=== PATIENT | female | born 1985 | race Hispanic/Latino ===

== ENCOUNTER → 2016-03-13 | Outpatient (CLI) | payer OTHER ==
--- OUTSIDE RECORDS SUMMARY | 2016-03-13 09:51 | XMS REPORT ---
Author SARAH BETH Mcrae [facility] eClinicalWorks Address Unknown Phone Unavailable Care Team Providers Care Computer Assembler Name Role Phone SARAH BETH MARK CP Unavailable Allergies No Known Allergies Problems Problem Type Condition Code Onset Dates Condition Status Assessment First , first trimester Z34.01 Active Medications No Known Medications Results No Known Results Summary Purpose eClinicalWorks Submission
--- NOTE | 2016-03-13 14:31 | Diagnostic Imaging Report ---
OB ultrasound. INDICATION: survey. FINDINGS: The heart rate is 136 beats per minutes. The cervix is long and closed. Adequate amniotic fluid is seen. There is no placenta previa. The placenta is posterior. The growth parameters are all around 18 weeks and 0 day, matching the gestational age by first trimester ultrasound. survey demonstrates unremarkable appearance of the spine, the posterior fossa, no ventriculomegaly, and the stomach and the urinary bladder appear unremarkable. Two umbilical arteries are noted. The cord insertion is not well seen. The four-chamber view is not well seen. IMPRESSION: Appropriate interval growth. Follow-up to evaluate four-chamber view and cord insertion recommended. Dictated by: Dictated on workstation # [id number]
== END ==
LOC: RAD 09:48
PROVIDERS: ATTEND Family Medicine
DX: Z34.02 Encounter for supervision of normal first pregnancy, second trimester (principal); Z3A.18 18 weeks gestation of pregnancy
CPT/HCPCS: 76805

== ENCOUNTER → 2016-05-01 | Outpatient (CLI) | payer OTHER ==
--- NOTE | 2016-05-01 17:30 | Diagnostic Imaging Report ---
OB ultrasound. INDICATION: Incomplete survey. Reevaluate cord insertion and four-chamber view of the heart. FINDINGS: The heart size is 139 beats per minute. The placenta is posterior. There is no placenta previa. The head position is cephalic. The four-chamber view and the cord insertion appear normal. IMPRESSION: Completed survey. Dictated by: Dictated on workstation # [id number]
== END ==
LOC: RAD 13:48
PROVIDERS: ATTEND Family Medicine
DX: Z34.92 Encounter for supervision of normal pregnancy, unspecified, second trimester (principal)
CPT/HCPCS: 76816

== ENCOUNTER 2016-08-17 09:18 | Outpatient (CLI) | payer OTHER ==
[~2016-08-17] VITALS: Ht 160 cm; Wt 84.4 kg
[2016-08-17 09:32] VITALS: BP 111/66
[2016-08-17] MEDS ORDERED: PREN-53 PO (10:24)
--- NOTE | 2016-08-19 14:01 | Physician Query-Final Dx ---
LINA UMAÑA 08/19/16 1401: Clinic Account Progress/Dx Physician Query: Please give diagnosis Date of Service Aug 17, 2016 at 09:18 HERMINIO FOURNIER MD 08/23/16 1143: Clinic Account Progress/Dx DIAGNOSIS: Diagnosis 40 weeks gestation Leaking fluid, negative testing for rupture of membranes LINA UMAÑA Aug 19, 2016 14:01 HERMINIO FOURNIER MD Aug 23, 2016 11:43
[2016-08-20] MEDS ORDERED: IBUP-1773 PO (16:26)
== END 2016-08-17 10:35 | disposition home or self-care (01) ==
LOC: WSo 09:18 → LDRP 09:19 → WSo 10:35
PROVIDERS: ATTEND Family Medicine
DX: Z34.83 Encounter for supervision of other normal pregnancy, third trimester (principal); Z3A.40 40 weeks gestation of pregnancy
CPT/HCPCS: 99214

== ENCOUNTER 2016-08-19 04:54 | Inpatient (IN) | payer OTHER ==
[2016-08-19] VITALS (51 sets, daily range): BP systolic 95–131; BP diastolic 53–92
[~2016-08-19] VITALS: Ht 160 cm; Wt 84.4 kg
[~2016-08-19 04:54] MED LIST: PREN-53 PO
[2016-08-19] MEDS ORDERED: D5 LR IV SOLUTION 1,000 ML IV ONE (05:24)
[2016-08-19] MEDS ORDERED: AMPICILLIN INJECTION 2,000 MG in NS (IVPB) 50 ML IV SCH (05:27)
[2016-08-19] MEDS: D5 LR IV SOLUTION 1,000 ML IV SCH ×2 (05:53→15:46)
[2016-08-19] MEDS ORDERED: AMPICILLIN 2000 MG INJECTION (IM/IV) ONE (05:53)
[2016-08-19] MEDS ORDERED: NS (IVPB) 50 ML ONE (05:54)
[2016-08-19] MEDS ORDERED: CATHETER FLUSH 10 ML SYR IV SCH ×2 (06:00→22:00)
[2016-08-19 06:09] LABS: BASOPHILS % (AUTO) 0 % (0-10); EOSINOPHILS # (AUTO) 0.1 10^3/uL (0.0-0.3); EOSINOPHILS % (AUTO) 1 % (0-10); LYMPHOCYTES # (AUTO) 1.8 X 10^3 (1.0-4.0); LYMPHOCYTES % (AUTO) 20 % (12-44); MEAN CORPUSCULAR HEMOGLOBIN 31 PG (25-34); MEAN CORPUSCULAR HGB CONC 35 G/DL (32-36); MEAN CORPUSCULAR VOLUME 87 FL (80-99); MEAN PLATELET VOLUME 9.1 FL (7.4-10.4); MONOCYTES # (AUTO) 0.7 X 10^3 (0.0-1.0); MONOCYTES % (AUTO) 9 % (0-12); NEUTROPHILS # (AUTO) 6.1 X 10^3 (1.8-7.8); NEUTROPHILS % (AUTO) 70 % (42-75); PLATELET COUNT 160 10^3/uL (130-400); RED BLOOD COUNT 4.54 10^6/uL (4.35-5.85); RED CELL DISTRIBUTION WIDTH 13.2 % (10.0-14.5); WHITE BLOOD COUNT 8.8 10^3/uL (4.3-11.0)
[2016-08-19] MEDS ORDERED: OXYTOCIN/NORMAL SALINE 500 ML IV SCH ×2 (07:35→17:10)
--- NOTE | 2016-08-19 07:35 | History & Physical-OB ---
OB - Chief Complaint & HPI Date/Time Date of Admission: Date of Admission: Aug 19, 2016 at 05:24 Time Seen by Provider: 07:15 Chief Complaint/History OB-Reason for Admission/Chief: Onset of Labor Hx : 1 Hx Para: 0 Expected Date of Delivery: Aug 14, 2016 Gestational Age in Weeks: 40 Gestational Age in Days: 5 Admission Nurse Assessment Rev: Yes Allergies and Home Medications Allergies Coded Allergies: No Known Drug Allergies (Unverified , 08/17/16) Home Medications Laz426/Iron Fumarate/FA/Dss 1 Each Tablet, 1 EACH PO DAILY, (Reported) OB - History Hx of Present Care: Yes Ultrasounds: Normal mid trimester US Obstetrical Complications: None Medical Complications: None Delivery History Adverse Rxn to Tranfusion: No Patient Past Medical History No chronic medical problems Social History/Family History Recent Infectious Disease Expo: No Alcohol Use: Denies Use Recreational Drug Use: No Immunizations Hepatitis A: Yes Hepatitis B: Yes OB - Admission Exam Physical Exam Date Seen by Provider: Aug 19, 2016 Time Seen by Provider: 07:15 Vitals: Vital Signs 08/19/16 06:00 Temp 97.2 Pulse 66 Resp 20 B/P (MAP) 130/71 O2 Delivery Room Air HEENT: Moist Membranes Heart: Rhythm Normal Lungs: Clear Abdomen: Gravid Cervical Dilatation: 3cm Effacement: 50% Station: -2 Membranes: Intact Accelerations: Accelerations Present Short Term Variability: Present It Systems Analyst Variability: Average (6-25) Intensity: Mild Labs Laboratory Tests Test 08/19/16 05:50 Range/Units White Blood Count 8.8 4.3-11.0 10^3/uL Red Blood Count 4.54 4.35-5.85 10^6/uL Hemoglobin 13.9 11.5-16.0 G/DL Hematocrit 40 35-52 % Mean Corpuscular Volume 87 80-99 FL Mean Corpuscular Hemoglobin 31 25-34 PG Mean Corpuscular Hemoglobin Concent 35 32-36 G/DL Red Cell Distribution Width 13.2 10.0-14.5 % Platelet Count 160 130-400 10^3/uL Mean Platelet Volume 9.1 7.4-10.4 FL Neutrophils (%) (Auto) 70 42-75 % Lymphocytes (%) (Auto) 20 12-44 % Monocytes (%) (Auto) 9 0-12 % Eosinophils (%) (Auto) 1 0-10 % Basophils (%) (Auto) 0 0-10 % Neutrophils # (Auto) 6.1 1.8-7.8 X 10^3 Lymphocytes # (Auto) 1.8 1.0-4.0 X 10^3 Monocytes # (Auto) 0.7 0.0-1.0 X 10^3 Eosinophils # (Auto) 0.1 0.0-0.3 10^3/uL Basophils # (Auto) 0.0 0.0-0.1 10^3/uL OB - Assessment/Plan/Diagnosis Assessment Assessment: active labor (at 40w5d) Plan [facility] MD Aug 19, 2016 07:34
[2016-08-19] MEDS ORDERED: SUFENTA 0.6MCG/ML BUPIVA 0.125 100 ML ONE (08:34)
[2016-08-19] MEDS ORDERED: BUPIVACAINE 0.25% 30 ML (SENSORCAINE) VIAL ONE (08:43)
[2016-08-19] MEDS ORDERED: LIDOCAINE PF 2% 5 ML (XYLOCAINE) VIAL ONE (08:43)
[2016-08-19] MEDS ORDERED: fentaNYL INJECTION 100 MCG/2 ML AMP ONE (08:43)
[2016-08-19] MEDS ORDERED: LACTATED RINGERS 1,000 ML IV ONE ×2 (08:45→09:21)
[2016-08-19] MEDS ORDERED: diphenhydrAMINE 50 MG/ML INJ (BENADRYL) IV PRN (09:30)
[2016-08-19] MEDS ORDERED: ONDANSETRON 4 MG/2 ML (SDV) Z0FRAN IV PRN (09:30)
[2016-08-19] MEDS ORDERED: NALOXONE 0.4 MG/ML 1 ML (NARCAN) VIAL IV PRN (09:30)
[2016-08-19] MEDS ORDERED: CATHETER FLUSH 10 ML SYR IV PRN (09:30)
[2016-08-19] MEDS ORDERED: EPIDURAL (SUFENTA 0.6MCG/ML BUPIVA 0.125%) 100 ML BAG EPI SCH (09:30)
[2016-08-19] MEDS: AMPICILLIN INJECTION 1,000 MG in NS (IVPB) 50 ML IV SCH ×2 (11:48→15:46)
[2016-08-19] MEDS ORDERED: MEPIVACAINE (CARBOCAINE) 2% 50 ML VIAL ONE (16:23)
--- NOTE | 2016-08-19 17:10 | OB Labor & Delivery Record ---
L&D History Date of Service Date of Service: Aug 19, 2016 History Expected Date of Delivery: Aug 14, 2016 Gestational Age in Weeks: 40 Hx : 1 Hx Para: 1 Complications Events: Routine care Operative Indications (Cesarea: N/A-Vaginal Delivery (with suction assist) Intrapartal Events: Ineffective Pushing (at delivery of head) Other Complications GBS positive treated with 3 doses of Amp L&D Stage1 Stage One Onset of Labor - Date: Aug 19, 2016 Onset of Labor - Time: 07:10 Monitors and Tracing Monitor Mode: Internal Heart Rate: 128 Monitor Accelerations: Uniform Monitor Decelerations: Variable Station: +1 Shuttle Threader Variability: Average (6-10) Short Term Variability: Present Presentation: Vertex Vital Signs VS - Last 72 Hours, by Label 08/19/16 08/19/16 08/19/16 08/19/16 06:00 08:00 09:00 09:05 Temp 97.2 97.4 97.4 Pulse 66 76 69 Resp 20 20 20 B/P (MAP) 130/71 107/73 124/92 Pulse Ox 100 100 O2 Delivery Room Air Room Air Room Air 08/19/16 08/19/16 08/19/16 08/19/16 09:08 09:13 09:20 09:25 Pulse 69 85 72 68 Resp 20 20 18 18 B/P (MAP) 125/82 111/74 125/77 117/69 Pulse Ox 100 99 99 98 O2 Delivery Room Air Room Air Room Air Room Air 08/19/16 08/19/16 08/19/16 08/19/16 09:30 09:35 09:40 09:45 Pulse 72 75 71 71 Resp 18 18 18 18 B/P (MAP) 106/72 110/69 107/67 111/69 Pulse Ox 99 99 99 99 O2 Delivery Room Air Room Air Room Air Room Air 08/19/16 08/19/16 08/19/16 08/19/16 09:50 09:55 10:00 10:05 Pulse 76 70 74 68 Resp 18 16 16 16 B/P (MAP) 111/67 106/63 96/60 131/70 Pulse Ox 100 100 100 100 O2 Delivery Room Air Room Air Room Air Room Air 08/19/16 08/19/16 08/19/16 08/19/16 10:10 10:15 10:30 10:45 Pulse 63 76 77 73 Resp 16 18 18 18 B/P (MAP) 105/62 95/55 104/59 100/59 Pulse Ox 100 98 98 98 O2 Delivery Room Air Room Air Room Air Room Air 08/19/16 08/19/16 08/19/16 08/19/16 11:00 11:15 11:30 11:45 Pulse 64 56 62 61 Resp 18 20 20 20 B/P (MAP) 109/66 108/70 107/59 105/61 Pulse Ox 100 99 100 100 O2 Delivery Room Air Room Air Room Air Room Air 08/19/16 08/19/16 08/19/16 08/19/16 12:05 12:20 12:35 12:50 Temp 97.0 Pulse 71 79 71 76 Resp 18 20 20 18 B/P (MAP) 99/56 108/67 113/78 116/66 O2 Delivery Room Air Room Air Room Air Room Air 08/19/16 08/19/16 08/19/16 08/19/16 13:05 13:20 13:35 13:50 Pulse 70 81 72 64 Resp 18 18 18 18 B/P (MAP) 112/67 99/63 120/71 109/62 O2 Delivery Room Air Room Air Room Air Room Air 08/19/16 08/19/16 08/19/16 08/19/16 14:05 14:20 14:35 14:50 Pulse 75 93 64 67 Resp 18 18 20 20 B/P (MAP) 102/58 118/57 112/76 105/64 O2 Delivery Room Air Room Air Room Air Room Air 08/19/16 08/19/16 08/19/16 08/19/16 15:05 15:20 15:48 16:05 Temp 98.7 Pulse 78 84 71 88 Resp 18 18 18 18 B/P (MAP) 109/72 113/74 113/74 116/69 O2 Delivery Room Air Room Air Room Air Room Air Signs of Distress by FHT Signs of Distress no Rupture of Membranes Spontaneous Ruture of Membrane: No Amniotic Membrane Rupture Time: 0723 Amniotic Membrane Fluid Desc.: Clear Induction/Anesthesia Epidural Cath Placement - Time: 0908 L&D Stage2 Stage Two Stage II Date: Aug 19, 2016 Stage II Time: 16:49 Monitors and Tracing Monitor Mode: Internal Heart Rate: 128 Monitor Accelerations: Uniform Monitor Decelerations: Variable Shuttle Threader Variability: Average (6-10) Short Term Variability: Present Position: Left Occiput Transverse Presentation: Vertex Signs of Distress by FHT Signs of Distress no Cord Descript/Complications Cord Vessel Description: 3 Vessels Delivery Type Infant Delivery Method: Low Vacuum Extraction Anterior Shoulder: Left Episiotomy/Perineal Laceration Laceraction(s)/Extensions: Yes Episiotomy Description: Midline Sutures Used: Vicryl Condition of Infant Delivery 1 minute Comment: 8 5 minute Comment: 9 Condition of Condition of Infant: Living Exam: No Observed Abnormalities Resuscitation Resuscitation: N/A - Spontaneous Resp L&D Stage3 Stage Three Stage III Date: Aug 19, 2016 Stage III Time: 16:52 Pictocin Pitocin Administration mu/min: 14 Pitocin ml/hr: 14 Placenta Delivery Placenta Delivery: Spontaneous Delivery Summary Summary 250cc Condition of Delivery Examined: Cervix Examined Post Hemorrhage: No Intervention Required none BRIAN LAMAS MD Aug 19, 2016 17:10
[2016-08-19] MEDS ORDERED: TETANUS,DIPTH,PERTUSS P/F (BOOSTRIX) 0.5 ML VIAL IM ONE (17:15)
[2016-08-19] MEDS ORDERED: WITCH HAZEL(TUCKS) 40 EA JAR TOP PRN (17:15)
[2016-08-19] MEDS ORDERED: MEASLES,MUMPS,RUBELLA 1 EA INJ SQ ONE (17:15)
[2016-08-19] MEDS ORDERED: BENZOCAINE/MENTHOL (DERMOPLAST) 56 ML CAN TP PRN (17:15)
[2016-08-19] MEDS: IBUPROFEN 600 MG (MOTRIN) TAB PO SCH (17:39)
[2016-08-20] VITALS: BP 105/65
[2016-08-20] MEDS: IBUPROFEN 600 MG (MOTRIN) TAB PO SCH ×4 (00:16→18:44)
[2016-08-20 04:33] VITALS: BP 95/62
[2016-08-20 06:18] LABS: BASOPHILS % (AUTO) 0 % (0-10); EOSINOPHILS # (AUTO) 0.2 10^3/uL (0.0-0.3); EOSINOPHILS % (AUTO) 2 % (0-10); LYMPHOCYTES % (AUTO) 17 % (12-44); MEAN CORPUSCULAR HEMOGLOBIN 31 PG (25-34); MEAN CORPUSCULAR HGB CONC 35 G/DL (32-36); MEAN CORPUSCULAR VOLUME 89 FL (80-99); MEAN PLATELET VOLUME 8.7 FL (7.4-10.4); MONOCYTES % (AUTO) 9 % (0-12); NEUTROPHILS # (AUTO) 8.4 X 10^3 (1.8-7.8); NEUTROPHILS % (AUTO) 72 % (42-75); PLATELET COUNT 147 10^3/uL (130-400); RED BLOOD COUNT 3.73 10^6/uL (4.35-5.85); RED CELL DISTRIBUTION WIDTH 13.1 % (10.0-14.5); WHITE BLOOD COUNT 11.6 10^3/uL (4.3-11.0)
[2016-08-20] MEDS ORDERED: PRENATAL VITAMIN 1 EA TAB PO SCH (07:00)
--- NOTE | 2016-08-20 07:30 | Progress Note (SOAP) ---
Subjective Date Seen by Provider: Aug 20, 2016 Time Seen by Provider: 07:15 Subjective/Events-last exam A little perineal soreness but otherwise no complaints. Objective Exam Vital Signs Date Time Temp Pulse Resp B/P (MAP) Pulse Ox O2 Delivery O2 Flow Rate FiO2 08/20/16 04:33 98.7 70 18 95/62 100 Room Air 08/20/16 00:00 97.6 76 18 105/65 98 Room Air 08/19/16 19:35 99.0 81 18 101/58 Room Air 08/19/16 18:50 86 18 103/56 Room Air 08/19/16 18:35 83 18 100/58 Room Air 08/19/16 18:20 100.5 93 18 113/53 Room Air 08/19/16 18:05 83 20 108/57 Room Air 08/19/16 17:50 102 20 112/59 Room Air 08/19/16 17:35 93 20 121/62 Room Air 08/19/16 17:20 100.7 88 20 116/68 Room Air 08/19/16 17:05 100.7 100 20 121/68 Room Air 08/19/16 16:50 121 20 129/59 Room Air 08/19/16 16:35 80 22 105/78 Room Air 08/19/16 16:20 90 20 115/76 Room Air 08/19/16 16:05 98.7 88 18 116/69 Room Air 08/19/16 15:48 71 18 113/74 Room Air 08/19/16 15:20 84 18 113/74 Room Air 08/19/16 15:05 78 18 109/72 Room Air 08/19/16 14:50 67 20 105/64 Room Air 08/19/16 14:35 64 20 112/76 Room Air 08/19/16 14:20 93 18 118/57 Room Air 08/19/16 14:05 75 18 102/58 Room Air 08/19/16 13:50 64 18 109/62 Room Air 08/19/16 13:35 72 18 120/71 Room Air 08/19/16 13:20 81 18 99/63 Room Air 08/19/16 13:05 70 18 112/67 Room Air 08/19/16 12:50 76 18 116/66 Room Air 08/19/16 12:35 71 20 113/78 Room Air 08/19/16 12:20 79 20 108/67 Room Air 08/19/16 12:05 97.0 71 18 99/56 Room Air 08/19/16 11:45 61 20 105/61 100 Room Air 08/19/16 11:30 62 20 107/59 100 Room Air 08/19/16 11:15 56 20 108/70 99 Room Air 08/19/16 11:00 64 18 109/66 100 Room Air 08/19/16 10:45 73 18 100/59 98 Room Air 08/19/16 10:30 77 18 104/59 98 Room Air 08/19/16 10:15 76 18 95/55 98 Room Air 08/19/16 10:10 63 16 105/62 100 Room Air 08/19/16 10:05 68 16 131/70 100 Room Air 08/19/16 10:00 74 16 96/60 100 Room Air 08/19/16 09:55 70 16 106/63 100 Room Air 08/19/16 09:50 76 18 111/67 100 Room Air 08/19/16 09:45 71 18 111/69 99 Room Air 08/19/16 09:40 71 18 107/67 99 Room Air 08/19/16 09:35 75 18 110/69 99 Room Air 08/19/16 09:30 72 18 106/72 99 Room Air 08/19/16 09:25 68 18 117/69 98 Room Air 08/19/16 09:20 72 18 125/77 99 Room Air 08/19/16 09:13 85 20 111/74 99 Room Air 08/19/16 09:08 69 20 125/82 100 Room Air 08/19/16 09:05 69 20 124/92 100 Room Air 08/19/16 09:00 97.4 76 20 107/73 100 Room Air 08/19/16 08:00 97.4 Capillary Refill : General Appearance: No Apparent Distress Respiratory: Lungs Clear Cardiovascular: Regular Rate, Rhythm Results Lab Laboratory Tests 08/20/16 06:13: White Blood Count 11.6H, Red Blood Count 3.73L, Hemoglobin 11.5, Hematocrit 33L , Mean Corpuscular Volume 89, Mean Corpuscular Hemoglobin 31, Mean Corpuscular Hemoglobin Concent 35, Red Cell Distribution Width 13.1, Platelet Count 147, Mean Platelet Volume 8.7, Neutrophils (%) (Auto) 72, Lymphocytes (%) (Auto) 17, Monocytes (%) (Auto) 9, Eosinophils (%) (Auto) 2, Basophils (%) (Auto) 0, Neutrophils # (Auto) 8.4H, Lymphocytes # (Auto) 2.0, Monocytes # (Auto) 1.0, Eosinophils # (Auto) 0.2, Basophils # (Auto) 0.0 Assessment/Plan Assessment/Plan Assess & Plan/Chief Complaint 1. S/P day 1 -continue routine PP care orders Clinical Quality Measures DVT/VTE Risk/Contraindication: Risk Factor Score Per Nursin RFS Level Per Nursing on Admit: 1=Low/No VTE PPX BRIAN LAMAS MD Aug 20, 2016 07:30
[2016-08-20 08:53] VITALS: BP 99/66
[2016-08-20] MEDS: HYDROcodone/APAP 5 MG/325 MG (LORTAB) TAB PO PRN ×3 (08:56→20:08)
[2016-08-20] MEDS ORDERED: [UNRECOGNIZED DRUG - OTHER] PO SCH (09:00)
--- NOTE | 2016-08-20 13:43 | Anesthesia-Regional Post-Op ---
Regional Patient Condition Mental Status: Alert, Oriented x3 Circulation: Same as Pre-Op Headache: Absent Sensation: Full Recovery Motor Block: Absent Post Op Complications Complications None Follow Up Care/Instructions Patient Instructions None needed. Anesthesia/Patient Condition Patient is doing well, no complaints, stable vital signs, no apparent adverse anesthesia problems. No complications reported per nursing. D/C home per [facility] Criteria: No FIOR SALAS CRNA Aug 20, 2016 13:43
[2016-08-20 13:49] VITALS: BP 106/53
[2016-08-20] MEDS ORDERED: IBUP-1773 PO (16:26)
--- NOTE | 2016-08-20 16:27 | Discharge Inst-Women's Service ---
Discharge Inst-Women's Serv Depart Medication/Instructions New, Converted or Re-Newed RX: Call to Patients Pharmacy Consults/Follow Up Additional Follow Up: Yes (with Dr Lamas in 6 weeks at [facility]) Activity Activity: Activity as Tolerated Driving Instructions: No Driving for 1 Week Nothing Inside Vagina: No [place] (for 6 weeks) Diet Discharge Diet: Regular Diet Return to The Hospital For: as below Symptoms to Report to : Bleeding Excessive, Pain Increased, Fever Over 101 Degrees F, Vaginal Discharge Foul For Any Problems or Questions: Contact Your Physician, Go to Emergency Room BRIAN LAMAS MD Aug 20, 2016 16:27
--- NOTE | 2016-08-20 16:31 | Discharge Summary ---
Diagnosis/Chief Complaint Date of Admission Aug 19, 2016 at 05:24 Date of Discharge August 20, 2016 Admission Diagnosis Admission Diagnosis 1 Intrauterine at 40 weeks gestation Discharge Diagnosis 1 Intrauterine at 40 weeks gestation Chief Complaint/HPI Chief Complaint/HPI 30-year-old female presents to women's services in the morning of August 19, 2016 in labor. She was noted to be 40 weeks 5 days gestation. Her membranes were intact at that time. Discharge Summary-OBS Procedures 1 Epidural per anesthesia 2. Suction-assisted vertex vaginal 3. Repair of midline episiotomy Discharge Physical Examination Allergies: Coded Allergies: No Known Drug Allergies (Unverified , 08/17/16) Vitals & I&Os Intake and Output 08/20/16 00:00 Intake Total 100 ml Balance 100 ml Vital Sign - Last 12Hours Date Time Temp Pulse Resp B/P (MAP) Pulse Ox O2 Delivery O2 Flow Rate FiO2 08/20/16 13:49 97.4 69 18 106/53 98 Room Air General Appearance: No Acute Distress Respiratory: Clear to Auscultation Cardiovascular: Regular Rate Abdominal: Soft (with uterus firm) Extremities: No Edema Hospital Course following admission patient underwent labor course and eventually went on to deliver term viable female with Apgars of 8 at 1 minute and 9 at 5 minutes. Labs Laboratory Tests 08/20/16 06:13: White Blood Count 11.6H, Red Blood Count 3.73L, Hemoglobin 11.5, Hematocrit 33L , Mean Corpuscular Volume 89, Mean Corpuscular Hemoglobin 31, Mean Corpuscular Hemoglobin Concent 35, Red Cell Distribution Width 13.1, Platelet Count 147, Mean Platelet Volume 8.7, Neutrophils (%) (Auto) 72, Lymphocytes (%) (Auto) 17, Monocytes (%) (Auto) 9, Eosinophils (%) (Auto) 2, Basophils (%) (Auto) 0, Neutrophils # (Auto) 8.4H, Lymphocytes # (Auto) 2.0, Monocytes # (Auto) 1.0, Eosinophils # (Auto) 0.2, Basophils # (Auto) 0.0 Discharge Instructions to patient/family Please see electonic discharge instructions given to patient. Discharge Medications Reviewed and agree with Discharge Medication list on patient's Discharge Instruction sheet Clinical Quality Measures DVT/VTE Risk/Contraindication: Risk Factor Score Per Nursin RFS Level Per Nursing on Admit: 1=Low/No VTE PPX BRIAN LAMAS MD Aug 20, 2016 16:31
--- OUTSIDE RECORDS SUMMARY | 2016-08-20 17:25 | XMS REPORT ---
Author PJ Aldana [facility] eClinicalWorks Address Unknown Phone Unavailable Care Team Providers Care Production Machine Tender Name Role Phone PJ SÁNCHEZ CP Unavailable Allergies, Adverse Reactions, Alerts Substance Reaction Event Type N.K.D.A. Info Not Available Non Drug Allergy Problems Problem Type Condition Code Onset Dates Condition Status Assessment First , first trimester Z34.01 Active Medications No Known Medications Procedures Procedure Coding System Code Date CHORIONIC GONADOTROPIN TEST CPT-4 51995 Dec 12, 2015 BLOOD TYPING, RH (D) CPT-4 05384 Dec 12, 2015 URINE TEST CPT-4 88288 Dec 12, 2015 VENIPUNCT, ROUTINE* CPT-4 94294 Dec 12, 2015 BLOOD TYPING, ABO CPT-4 65609 Dec 12, 2015 Office Visit, Est Pt., Level 3 CPT-4 11600 Dec 12, 2015 Vital Signs Date/Time: Dec 12, 2015 Blood Pressure Systolic 116 mmHg Cardiac Monitoring Heart Rate 60 bpm Weight 160.4 lbs Blood Pressure Diastolic 72 mmHg Results Name Result Date Reference Range Unit Abnormality Flag BLOOD TYPE/RH FACTOR ----ABO Grouping O 20151212 ----Rh Factor Positive 20151212 TEST, URINE (IN HOUSE) ----RESULTS Positive 20151212 ----Lot # [id number] ----Control + 20151212 ----Exp date 20151212 ROUTINE VENIPUNCTURE Summary Purpose eClinicalWorks Submission
--- OUTSIDE RECORDS SUMMARY | 2016-08-20 17:25 | XMS REPORT ---
Author ESTELLA Lopez [facility] eClinicalWorks Address Unknown Phone Unavailable Care Team Providers Care Automobile Accessories Salesperson Name Role Phone ESTELLA KNOWLES CP Unavailable Allergies, Adverse Reactions, Alerts Substance Reaction Event Type N.K.D.A. Info Not Available Non Drug Allergy Problems Problem Type Condition Code Onset Dates Condition Status Assessment Encounter for IUD removal Z30.432 Active Medications Medication Code System Code Instructions Start Date End Date Status Dosage Mirena [facility] [id number] 20 MCG/24HR Intrauterine not defined Procedures Procedure Coding System Code Date URINE TEST CPT-4 13024 August 30, 2015 Office Visit, New Pt., Level 3 CPT-4 75191 August 30, 2015 Vital Signs Date/Time: August 30, 2015 Blood Pressure Systolic 104 mmHg Cardiac Monitoring Heart Rate 76 bpm Weight 161.8 lbs Blood Pressure Diastolic 74 mmHg Results No Known Results Summary Purpose eClinicalWorks Submission
--- OUTSIDE RECORDS SUMMARY | 2016-08-20 17:25 | XMS REPORT ---
Author SARAH BETH Mcrae [facility] eClinicalWorks Address Unknown Phone Unavailable Care Team Providers Care Idea Worker Name Role Phone SARAH BETH MARK CP Unavailable Allergies No Known Allergies Problems Problem Type Condition Code Onset Dates Condition Status Assessment First , first trimester Z34.01 Active Medications No Known Medications Results No Known Results Summary Purpose eClinicalWorks Submission
--- OUTSIDE RECORDS SUMMARY | 2016-08-20 17:25 | XMS REPORT ---
Author SARAH BETH Mcrae [facility] eClinicalWorks Address Unknown Phone Unavailable Care Team Providers Care Custodian Athletic Equipment Name Role Phone SARAH BETH MARK Unavailable Allergies No Known Allergies Problems Problem Type Condition Code Onset Dates Condition Status Assessment First , first trimester Z34.01 Active Medications No Known Medications Procedures Procedure Coding System Code Date VENIPUNCT, ROUTINE* CPT-4 77877 Dec 15, 2015 CHORIONIC GONADOTROPIN TEST CPT-4 25277 Dec 15, 2015 Results Name Result Date Reference Range Unit Abnormality Flag ROUTINE VENIPUNCTURE Summary Purpose eClinicalWorks Submission
--- OUTSIDE RECORDS SUMMARY | 2016-08-20 17:25 | XMS REPORT ---
Author Author BRIAN LAMAS [facility] eClinicalWorks Address Unknown Phone Unavailable Care Team Providers Care Purchasing Associate Name Role Phone BRIAN LAMAS CP Unavailable Allergies No Known Allergies Problems No Known Problems Medications No Known Medications Results No Known Results Summary Purpose eClinicalWorks Submission
--- OUTSIDE RECORDS SUMMARY | 2016-08-20 17:25 | XMS REPORT ---
Author Author BRIAN LAMAS Organization [facility] Address [address] [place] [address] Care Team Providers Care Whey Department Operator Name Role Phone BRIAN LAMAS Unavailable PROBLEMS Type Condition ICD9-CM Code [id number] Code Onset Dates Condition Status SNOMED Code Assessment First , first trimester Z34.01 Dec, Active [id number] Assessment Normal , first Z34.00 Dec, Active [id number] ALLERGIES Substance Reaction Event Type Date Status N.K.D.A. Unknown Non Drug Allergy Dec, Unknown SOCIAL HISTORY No smoking Hx information available PLAN OF CARE Activity Details Pending Test PAP TEST, HPV IF ASCUS Pending Test SYPHILIS (STATE) Pending Test HIV (STATE) Pending Test HEP B SURFACE ANTIGEN (STATE) 4 Weeks,Reason: VITAL SIGNS Height 5'6" in 2016-01-03 Weight 165.0 lbs 2016-01-03 Heart Rate 78 bpm 2016-01-03 Respiratory Rate 18 2016-01-03 BMI 26.64 kg/m2 2016-01-03 Blood pressure systolic 120 mmHg 2016-01-03 Blood pressure diastolic 76 mmHg 2016-01-03 MEDICATIONS Medication Instructions Dosage Frequency Start Date End Date Duration Status Vitamin 27-0.8 MG Active RESULTS Name Result Date Reference Range TSH () 2016-01-03 TSH 1.110 0.450-4.500 CBC 2016-01-03 WBC 6.3 3.4-10.8 RBC 4.54 3.77-5.28 Hemoglobin 13.1 11.1-15.9 Hematocrit 38.3 34.0-46.6 MCV 84 79-97 MCH 28.9 26.6-33.0 MCHC 34.2 31.5-35.7 RDW 13.5 12.3-15.4 Platelets 270 150-379 Neutrophils 62 Lymphs 28 Monocytes 7 Eos 2 Basos 1 Neutrophils (Absolute) 4.0 1.4-7.0 Lymphs (Absolute) 1.7 0.7-3.1 Monocytes(Absolute) 0.4 0.1-0.9 Eos (Absolute) 0.1 0.0-0.4 Baso (Absolute) 0.0 0.0-0.2 Immature Granulocytes 0 Immature Grans (Abs) 0.0 0.0-0.1 ANTIBODY SCREEN 2016-01-03 Antibody Screen Negative Negative BLOOD TYPE/RH FACTOR 2016-01-03 ABO Grouping O Rh Factor Positive RUBELLA ANTIBODIES, IgG 2016-01-03 Rubella Antibodies, IgG 31.50 Immune >0.99 CULTURE, GENITAL 2016-01-03 Genital Culture, Routine Final report Result 1 CULTURE, URINE 2016-01-03 Urine Culture, Routine Final report Result 1 No growth GC/CHLAM PROBE (STATE) 2016-01-03 CHLAMYDIA GC TRICHOMONAS (IN HOUSE) 2016-01-03 TRICHOMONAS Negative Control + Lot # [id number] Exp date 12/2016 URINE DRUG SCREEN (IN HOUSE) 2016-01-03 Lot # [id number] Exp date 06/2017 Control + COCAINE negative AMPH negative MTD negative THC negative OPIATE negative BENZO negative PCP negative BAR negative OXY negative MAMP negative TCA negative BUP negative MDMA negative UA LONG DIP (IN HOUSE) 2016-01-03 Lot # [id number] Exp date 12/2016 Clarity clear Color yellow Odor no GLU negative BELKYS negative KET negative SG 1.025 BLO trace-intact pH 6.5 Protein negative URO 0.2 NIT negative ELMA negative Lot # Exp PDF Report 2016-01-03 PDF Report1 LCLS BACTERIAL VAGINOSIS (IN HOUSE) 2016-01-03 RESULTS Control + Lot # [id number] Exp date 09/2016 Ultrasound : OB, Early <14 WEEKS 2016-01-10 PAP TEST, HPV IF ASCUS 2016-01-03 DIAGNOSIS: Specimen adequacy: Clinician provided ICD10: Performed by: . . Pathologist provided ICD10: Note: . SYPHILIS (STATE) 2016-01-03 HIV (STATE) 2016-01-03 HEP B SURFACE ANTIGEN (STATE) 2016-01-03 HEP B ANTIBODY HEP B ANTIBODY (RML) HEP B ANTIBODY (STATE) PROCEDURES Procedure Date Ordered Related Diagnosis Body Site BLOOD TYPING, RH (D) Jan 03, 2016 URINE CULTURE/COLONY COUNT Jan 03, 2016 BLOOD TYPING, ABO Jan 03, 2016 ASSAY THYROID STIM HORMONE Jan 03, 2016 RBC ANTIBODY SCREEN Jan 03, 2016 RUBELLA ANTIBODY Jan 03, 2016 COMPLETE CBC W/AUTO DIFF WBC Jan 03, 2016 CULTURE, BACTERIA, OTHER Jan 03, 2016 HARMON VAG, DNA, DIR PROBE Jan 03, 2016 URINALYSIS, AUTO, W/O SCOPE Jan 03, 2016 TRICHOMONAS ASSAY W/OPTIC Jan 03, 2016 SPECIMEN HANDLING Jan 03, 2016 DRUG SCREEN NON TLC DEVICES Jan 03, 2016 Office Visit, Est Pt., Level 4 Jan 03, 2016 VENIPUNCT, ROUTINE* Jan 03, 2016 IMMUNIZATIONS No Known Immunizations
--- OUTSIDE RECORDS SUMMARY | 2016-08-20 17:25 | XMS REPORT ---
Author SARAH BETH Mcrae [facility] eClinicalWorks Address Unknown Phone Unavailable Care Team Providers Care Well Tester Name Role Phone SARAH BETH MARK CP Unavailable Allergies, Adverse Reactions, Alerts Substance Reaction Event Type N.K.D.A. Info Not Available Non Drug Allergy Problems No Known Problems Medications Medication Code System Code Instructions Start Date End Date Status Dosage Vitamin [facility] [place] [id number] 27-0.8 MG Orally not defined Results No Known Results Summary Purpose eClinicalWorks Submission
[2016-08-20 20:00] VITALS: BP 106/62
== END 2016-08-20 20:55 | disposition home or self-care (01) | DRG 775 ==
LOC: LDRP 04:54 → WSo 04:54 → LDRP 05:24 → WSo 05:24 → LDRP 20:45
PROVIDERS: ADMIT Family Medicine; ATTEND Family Medicine
PROC: 10D07Z6 Extraction of Products of Conception, Vacuum, Via Natural or Artificial Opening (ICD-10-PCS; principal; 2016-08-19)
PROC: 0W8NXZZ Division of Female Perineum, External Approach (ICD-10-PCS; 2016-08-19)
DX: O75.81 Maternal exhaustion complicating labor and delivery (principal); O99.824 Streptococcus B carrier state complicating childbirth; Z37.0 Single live birth; Z3A.40 40 weeks gestation of pregnancy
CPT/HCPCS: 36415; 85025; 86850; 86900; 86901; 99212

== ENCOUNTER → 2017-07-24 | Outpatient (CLI) | payer OTHER ==
[~2017-07-24] MED LIST changes: +IBUP-1773 PO
--- NOTE | 2017-07-24 17:13 | Diagnostic Imaging Report ---
REASON FOR EXAM: Pelvic pain. COMPARISON: None. TECHNIQUE: Transpelvic sonogram was performed. FINDINGS: The uterus appears anteverted, with an intrauterine device in expected position. The uterus is normal in size. Endometrial thickness is 7 mm which is within normal limits. The right ovary measures 2.0 x 3.5 x 2.1 cm and demonstrates vascular flow. The left ovary measures 2.7 x 2.8 x 1.7 cm and also demonstrates vascular flow. No free fluid is seen. IMPRESSION: 1. No focal uterine masses. The intrauterine device is in expected position. 2. No adnexal masses. Normal appearing ovaries. Dictated by: Dictated on workstation # [id number]
== END ==
LOC: RAD 16:00
PROVIDERS: ATTEND Nurse Practitioner Family
DX: R10.2 Pelvic and perineal pain (principal); Z97.5 Presence of (intrauterine) contraceptive device
CPT/HCPCS: 76856

== ENCOUNTER 2021-04-11 00:21 | Outpatient (CLI) | payer BC ==
[~2021-04-11] VITALS: Ht 162.6 cm; Wt 91.6 kg
[2021-04-11 00:37] VITALS: BP 115/64
[2021-04-11 00:39] VITALS: BP 115/64
[2021-04-11 00:40] VITALS: BP 115/64
[2021-04-11 00:42] LABS: BILIRUBIN,URINE NEGATIVE (NEGATIVE); CLARITY,URINE CLEAR; COLOR,URINE YELLOW; GLUCOSE, URINE (UA) NEGATIVE (NEGATIVE); KETONES,URINE 1+ (NEGATIVE); LEUKOCYTE ESTERASE ,URINE 2+ (NEGATIVE); NITRITE,URINE NEGATIVE (NEGATIVE); PH,URINE 6.5 (5-9); PROTEIN,URINE NEGATIVE (NEGATIVE)
[2021-04-11 00:56] LABS: BACTERIA,URINE TRACE /HPF; SQUAMOUS EPITHELIAL CELL,UR 0-2 /HPF; YEAST,URINE FEW /HPF
[2021-04-11] MEDS ORDERED: fluCOnazole (DIFLUCAN) 100 MG TAB ONE (01:41)
[2021-04-11] MEDS ORDERED: fluCOnazole (DIFLUCAN) 100 MG TAB PO SCH (09:00)
--- NOTE | 2021-04-12 08:15 | Physician Query-Final Dx ---
Clinic Account Progress/Dx Physician Query: Please give diagnosis Please include # weeks gestation Date of Service Apr 11, 2021 at 00:21 ,FebApr 12, 2021 08:15
== END 2021-04-11 01:55 | disposition home or self-care (01) ==
LOC: WSo 00:21 → LDRP 00:22 → WSo 01:55
PROVIDERS: ATTEND Family Medicine
DX: O62.9 Abnormality of forces of labor, unspecified (principal); Z3A.37 37 weeks gestation of pregnancy
CPT/HCPCS: 81000; 87077; 87088

== ENCOUNTER 2021-04-13 02:23 | Inpatient (IN) | payer BC ==
[2021-04-13] VITALS (20 sets, daily range): BP systolic 94–128; BP diastolic 51–90
[2021-04-13 03:00] LABS: BASOPHILS % (AUTO) 0 % (0-10); EOSINOPHILS # (AUTO) 0.1 10^3/uL (0.0-0.3); EOSINOPHILS % (AUTO) 1 % (0-10); HEMATOCRIT 30 % (35-52); HEMOGLOBIN 9.3 g/dL (11.5-16.0); LYMPHOCYTES # (AUTO) 1.8 10^3/uL (1.0-4.0); LYMPHOCYTES % (AUTO) 18 % (12-44); MEAN CORPUSCULAR HEMOGLOBIN 24 pg (25-34); MEAN CORPUSCULAR HGB CONC 31 g/dL (32-36); MEAN CORPUSCULAR VOLUME 76 fL (80-99); MEAN PLATELET VOLUME 9.3 fL (9.0-12.2); MONOCYTES # (AUTO) 0.7 10^3/uL (0.0-1.0); MONOCYTES % (AUTO) 7 % (0-12); NEUTROPHILS # (AUTO) 7.5 10^3/uL (1.8-7.8); NEUTROPHILS % (AUTO) 74 % (42-75); PLATELET COUNT 164 10^3/uL (130-400); WHITE BLOOD COUNT 10.2 10^3/uL (4.3-11.0)
[2021-04-13] MEDS ORDERED: D5 LR IV SOLUTION 1,000 ML IV SCH (03:00)
[2021-04-13] MEDS ORDERED: LACTATED RINGERS 1,000 ML IV SCH (03:00)
[2021-04-13] MEDS ORDERED: CITRIC ACID/SOB CIT (BICITRA) 30 ML UDC ONE (03:12)
[2021-04-13] MEDS ORDERED: METOCLOPRAMIDE INJ 10 MG/2 ML (REGLAN) ONE ×2 (03:13→04:00)
[2021-04-13] MEDS ORDERED: FAMOTIDINE 20MG/2ML IV (PEPCID) ONE (03:13)
[2021-04-13] MEDS ORDERED: ceFAZolin 2 GM IV Premixed 50 ML ONE (03:13)
[2021-04-13] MEDS ORDERED: CATHETER FLUSH 10 ML SYR IV PRN (03:15)
[2021-04-13] MEDS ORDERED: LACTATED RINGERS 1,000 ML IV PRN ×2 (03:15)
[2021-04-13] MEDS ORDERED: METOCLOPRAMIDE INJ 10 MG/2 ML (REGLAN) IV ONE (03:15)
[2021-04-13] MEDS ORDERED: CITRIC ACID/SOB CIT (BICITRA) 30 ML UDC PO ONE (03:15)
--- NOTE | 2021-04-13 03:25 | History & Physical-OB ---
OB - Chief Complaint & HPI Date/Time Date of Admission: Date of Admission: Apr 13, 2021 at 02:36 Date seen by a Provider: Apr 13, 2021 Time Seen by a Provider: 03:10 Chief Complaint/History OB-Reason for Admission/Chief: Rupture of Membranes (with vaginal bleeding) Hx : 2 Hx Para: 1 Expected Date of Delivery: May 06, 2021 Gestational Age in Weeks: 36 Gestational Age in Days: 5 Indication for : other (placental abuption suspect) Admission Nurse Assessment Rev: Yes History of Labs GBS obtained 04/11/2021 and pending Allergies and Home Medications Allergies Coded Allergies: No Known Drug Allergies (Unverified , 08/17/16) Patient Home Medication List Home Medication List Reviewed: Yes No Active Prescriptions or Reported Meds OB - History Hx of Present Care: Yes Ultrasounds: Normal mid trimester US (with posterior placenta) Obstetrical Complications: None Medical Complications: None Obstetrical History Hx : 2 Hx Para: 1 Delivery History Adverse Rxn to Tranfusion: No Patient Past Medical History No chronic medical problems Social History/Family History Recreational Drug Use: No Immunizations Influenza Vaccine Up-to-Date: Yes; Up-to-Date Hepatitis A: Yes Hepatitis B: Yes OB - Admission Exam Physical Exam Vitals: Vital Signs 04/13/21 03:08 Temp 36.5 Pulse 68 Resp 18 B/P (MAP) 128/90 (103) Pulse Ox 100 O2 Delivery Room Air HEENT: Moist Membranes Heart: Rhythm Normal Lungs: Clear Cervical Dilatation: 1cm Effacement: 50% Station: Ballotable Membranes: Ruptured (with blood on glove) Heart Rate: 130's Accelerations: No Accelerations Decelerations: No Decelerations Short Term Variability: Present Nursing Home Variability: Minimal (3-5) Contractions on Admission: < 5 Minutes Apart Intensity: Moderate Labs Laboratory Tests Test 04/13/21 02:36 Range/Units White Blood Count 10.2 4.3-11.0 10^3/uL Red Blood Count 3.96 3.80-5.11 10^6/uL Hemoglobin 9.3 L 11.5-16.0 g/dL Hematocrit 30 L 35-52 % Mean Corpuscular Volume 76 L 80-99 fL Mean Corpuscular Hemoglobin 24 L 25-34 pg Mean Corpuscular Hemoglobin Concent 31 L 32-36 g/dL Red Cell Distribution Width 14.0 10.0-14.5 % Platelet Count 164 130-400 10^3/uL Mean Platelet Volume 9.3 9.0-12.2 fL Immature Granulocyte % (Auto) 1 % Neutrophils (%) (Auto) 74 42-75 % Lymphocytes (%) (Auto) 18 12-44 % Monocytes (%) (Auto) 7 0-12 % Eosinophils (%) (Auto) 1 0-10 % Basophils (%) (Auto) 0 0-10 % Neutrophils # (Auto) 7.5 1.8-7.8 10^3/uL Lymphocytes # (Auto) 1.8 1.0-4.0 10^3/uL Monocytes # (Auto) 0.7 0.0-1.0 10^3/uL Eosinophils # (Auto) 0.1 0.0-0.3 10^3/uL Basophils # (Auto) 0.0 0.0-0.1 10^3/uL Immature Granulocyte # (Auto) 0.1 0.0-0.1 10^3/uL OB - Assessment/Plan/Diagnosis Assessment Assessment: rupture of membranes, vaginal bleeding Admission Dx 1. IUP at 36w5d -uterine contractions q 2 min apart currently 2. Vaginal bleed with ruptured membranes, suspect placental abruption -minimal variablilty and only dilated to 1 cm and 50% effaced -will plan on stat CS. -surgery crew and Dr Chatman notified. Admission Status: Inpatient Order (span 2 midnights) Reason for Inpatient Admission: Stat CS due to vaginal bleed (placental abruption likely) with 36w5d gestation Plan Plan: Section (stat) BRIAN LAMAS MD Apr 13, 2021 03:25
[2021-04-13] MEDS ORDERED: ceFAZolin 2 GM IV Premixed 50 ML IV ONE (03:30)
[2021-04-13] MEDS ORDERED: SUCCINYLCHOLINE INJ 20 MG/1 ML 10 ML VIAL ONE (03:35)
[2021-04-13] MEDS ORDERED: proPOfol 200 MG/20 ML (DIPRIVAN) VIAL IV ONE (03:35)
[2021-04-13] MEDS ORDERED: fentaNYL INJ 100 MCG/2 ML AMP ONE (03:37)
[2021-04-13] MEDS ORDERED: METHYLERGONOVINE 0.2 MG/ML (METHERGINE) AMP ONE (03:50)
[2021-04-13] MEDS ORDERED: ONDANSETRON 4 MG/2 ML (SDV) Z0FRAN ONE (04:00)
[2021-04-13] MEDS ORDERED: OXYTOCIN PRE-MIX DRIP 500 ML IV ONE (04:00)
[2021-04-13] MEDS ORDERED: morphine INJ 10 MG/ML 1ML (SYR OR VIAL) ONE (04:03)
--- NOTE | 2021-04-13 04:28 | Discharge Inst-Women's Service ---
Discharge Inst-Women's Serv Depart Medication/Instructions New, Converted or Re-Newed RX: Transmitted to Pharmacy Final Diagnosis POD 2 PLTCS Problems Reviewed?: Yes Consults/Follow Up Additional Follow Up: Yes Orders/Referrals Dr. Chatman or Mónica in 7-[address] Chino in 6 weeks Activity Activity: Activity as Tolerated Driving Instructions: No Driving for 1 Week NO SMOKING: NO SMOKING Nothing Inside Vagina: No Douching, No [place], No Tampons Diet Discharge Diet: No Restrictions Symptoms to Report to : Bleeding Excessive, Pain Increased, Fever Over 101 Degrees F, Vaginal Bleeding Increase, Questions/Concerns For Any Problems or Questions: Contact Your Physician Skin/Wound Care Infection Signs and Symptoms: Increased Redness, Foul Odor of Wound, Increased Drainage, Skin Itchy or Has a Rash, Increased Swelling, Temperature Above 101 F Operative Area Clean and Dry: Keep Incision Clean/Dry Stitches/Yumiko/Dermabond: Dermabond, Care of Stitches Bathing Instructions: ADELE Ramon DO Apr 13, 2021 04:28
[2021-04-13] MEDS ORDERED: OXYTOCIN PRE-MIX DRIP 500 ML IV SCH (04:30)
[2021-04-13] MEDS ORDERED: ONDANSETRON 4 MG/2 ML (SDV) Z0FRAN IVP PRN ×2 (04:30→04:45)
[2021-04-13] MEDS ORDERED: ACHD5005 PO (04:30)
[2021-04-13] MEDS ORDERED: HYDROmorphone 2 MG/ML VIAL (DILAUDID) IV PRN (04:30)
[2021-04-13] MEDS ORDERED: MEASLES,MUMPS,RUBELLA 1 EA INJ SC SCH (04:30)
[2021-04-13] MEDS ORDERED: TETANUS,DIPTH,PERTUSS P/F (BOOSTRIX) 0.5 ML VIAL IM SCH (04:30)
[2021-04-13] MEDS ORDERED: FERR325T18 PO (04:30)
[2021-04-13] MEDS ORDERED: NALOXONE 0.4 MG/ML 1 ML (NARCAN) VIAL IV PRN (04:30)
[2021-04-13] MEDS ORDERED: DOCU100C37 PO (04:30)
[2021-04-13] MEDS ORDERED: IBUP-844 PO (04:30)
[2021-04-13] MEDS ORDERED: HYDROmorphone 2 MG/ML VIAL (DILAUDID) IV ONE (04:45)
[2021-04-13] MEDS ORDERED: SEVOFLURANE (ULTANE) 15 ML INHAL SOLN ONE (04:45)
[2021-04-13] MEDS ORDERED: HYDROmorphone 2 MG/ML VIAL (DILAUDID) ONE (04:52)
[2021-04-13] MEDS ORDERED: CATHETER FLUSH 10 ML SYR IV SCH (06:00)
--- NOTE | 2021-04-13 06:05 | Diagnostic Imaging Report ---
INDICATION: Postoperative evaluation, foreign body, status post . COMPARISON: None available TECHNIQUE: 2 radiographs of the pelvis and lower abdomen dated 04/13/2021 FINDINGS: The superior aspect of the abdomen is not included within the [id number]. No acute fracture or dislocation. No destructive osseous process. The sacroiliac joints and pubic symphysis are intact. No suspicious radiopaque foreign body within the [id number]. Nonobstructive bowel gas pattern. IMPRESSION: No suspicious radiopaque foreign body within the [id number]. Dictated by: Dictated on workstation # [id number]
[2021-04-13] MEDS: KETOROLAC 30 MG/ML VIAL IV SCH ×3 (06:06→18:27)
[2021-04-13] MEDS: DOCUSATE SODIUM 100 MG (COLACE) CAP PO SCH (08:29)
[2021-04-13] MEDS: HYDROcodone/APAP 5 MG/325 MG (LORTAB) TAB PO PRN ×2 (08:30→13:08)
--- NOTE | 2021-04-13 09:36 | OPERATIVE REPORT ---
DATE OF SERVICE: 04/13/2021 PREOPERATIVE DIAGNOSES: 1. A 35-year-old G2, P1 at 36 weeks and 5 days gestation. 2. Placental abruption. POSTOPERATIVE DIAGNOSES: 1. A 35-year-old G2, P1 at 36 weeks and 5 days gestation. 2. Placental abruption with distress. PROCEDURE: Primary low transverse section. SURGEON: Walter Chatman DO CLINICAL RN LIAISON: Troy Chino MD, who was necessary for manipulation and retraction throughout the procedure. ANESTHESIA: General. ESTIMATED BLOOD LOSS: 800 mL. URINE OUTPUT: 150 mL clear at the end of the procedure. FLUIDS: 2000 mL lactated Ringer's solution. FINDINGS: A live male infant weighing 7 pounds 5 ounces, Apgars of 1, 4 and 5. Grossly normal appearing bilateral fallopian tubes and ovaries. Ecchymosis noted throughout the entire uterus, placental detachment consistent with abruption. SPECIMEN SENT: Placenta and cord gases. INDICATIONS FOR PROCEDURE: This 35-year-old female is a patient who presented to the Emergency Department this morning approximately 2:00 a.m. with sudden onset of vaginal bleeding that was running down her legs and significant amount of abdominal pain and contractions. Upon evaluation on the monitor by Dr. Chino, she was found to be marko every 1 to 2 minutes with significant discomfort. She was 1 cm dilated and there was a significant amount of bleeding noted vaginally. Due to suspicion for abruption, I was notified at the time of my presentation. heart rate was still stable with a baseline of approximately 155 to 160, but minimal variability, no accelerations were noted. Due to concerns for wellbeing as well as the significant amount of vaginal bleeding the patient we decided to proceed with emergency . Risks were reviewed with the patient briefly preoperatively. OR crew was contacted and the procedure was started as soon as possible under general anesthesia. DESCRIPTION OF PROCEDURE: Once in the operating room, general anesthesia was found to be adequate. She was placed in supine position with leftward tilt, prepped and draped in normal sterile fashion. Once I have given the okay by anesthesia, I make a Pfannenstiel skin incision with a knife and carried down to underlying fascia using the knife. The fascial incision extended laterally using traction. The midline between the rectus muscle was identified and entered bluntly and extended using blunt traction. The peritoneum was then entered using blunt dissection and blunt traction, at which point I placed an Alcides ring retractor into the peritoneal incision, which offers excellent lateral sidewall retraction. I identified the lower uterine segment and make a low transverse incision posterior to the uterus until membranes were visualized, at which point I extended the uterine incision laterally using traction. Amniotomy was performed at that point. Clear fluid was noted. Infant was found in vertex presentation. With gentle fundal pressure, the 's head elevated up to the incision where the nares and oropharynx were bulb suctioned. Anterior and posterior shoulders were delivered. was then brought to the operative field where cord was doubly clamped and cut and was handed off to Dr. Chino, who further attendance to the . The placenta is upon evaluation of the uterus. I do collect cord blood as well as cord gases from the umbilical artery. The placenta is sent intact as one specimen. There is a large amount of blood clot noted behind the placenta in the uterus that has to be cleared out. The uterus was then cleared of all endometrial clots and debris. I then exteriorized the uterus. I then proceeded with closing the uterine incision using 0 Vicryl suture in running locked fashion. Second layer of imbricating 0 Monocryl was placed. Excellent hemostasis was noted after doing this. I then placed the uterus back in the pelvis and copiously irrigated the pelvis using normal saline. Once again, there was no active bleeding noted from any of my dissection planes. I placed Interceed antiadhesive over my low transverse incision. There is still some mild uterine atony noted, so I have anesthesia administer 0.2 mg of Methergine IM, which helped with uterine tone. IV Pitocin was also initiated to facilitate uterine contraction. I then proceeded with closing the peritoneum using 3-0 Vicryl suture in running fashion. Rectus muscle reapproximated using 3-0 Vicryl suture in interrupted fashion. The fascia was reapproximated using 0 Vicryl suture in running fashion. The subcutaneous tissue was reapproximated using 3-0 plain interrupted subcutaneous stitch and skin reapproximated using 4-0 Monocryl running subcuticular. Dermabond was applied to incision and sterile dressing with adhesive white tape. The patient tolerated the procedure well and sent to recovery in stable condition. Lap and sponge counts were correct at the end of the procedure. Instrument counts correct as well. A 2 grams of Ancef preoperatively for infection prophylaxis. Job ID: [id number] DocumentID: [id number] Dictated Date: 04/13/2021 04:36:07 Teacher Date: 04/13/2021 09:35:46 Dictated By: DO TEN FOSTER
[2021-04-13 13:44] LABS: HEMOGLOBIN 5.9 g/dL (11.5-16.0)
[2021-04-13] MEDS ORDERED: NS IV 500 ML 500 ML IV SCH (14:00)
[2021-04-14] MEDS: KETOROLAC 30 MG/ML VIAL IV SCH (00:09)
[2021-04-14] MEDS: DOCUSATE SODIUM 100 MG (COLACE) CAP PO SCH ×3 (00:09→23:42)
[2021-04-14 00:11] VITALS: BP 105/58
[2021-04-14] MEDS: HYDROcodone/APAP 5 MG/325 MG (LORTAB) TAB PO PRN ×4 (03:33→19:23)
[2021-04-14 03:45] VITALS: BP 97/54
[2021-04-14] MEDS: IBUPROFEN 600 MG (MOTRIN) TAB PO SCH ×4 (05:44→23:42)
[2021-04-14 06:10] LABS: BASOPHILS % (AUTO) 1 % (0-10); EOSINOPHILS % (AUTO) 1 % (0-10); HEMATOCRIT 23 % (35-52); HEMOGLOBIN 7.3 g/dL (11.5-16.0); LYMPHOCYTES # (AUTO) 1.3 10^3/uL (1.0-4.0); LYMPHOCYTES % (AUTO) 18 % (12-44); MEAN CORPUSCULAR HEMOGLOBIN 25 pg (25-34); MEAN CORPUSCULAR HGB CONC 32 g/dL (32-36); MEAN CORPUSCULAR VOLUME 78 fL (80-99); MEAN PLATELET VOLUME 9.5 fL (9.0-12.2); MONOCYTES # (AUTO) 0.5 10^3/uL (0.0-1.0); MONOCYTES % (AUTO) 7 % (0-12); NEUTROPHILS # (AUTO) 5.5 10^3/uL (1.8-7.8); NEUTROPHILS % (AUTO) 73 % (42-75); PLATELET COUNT 118 10^3/uL (130-400); WHITE BLOOD COUNT 7.6 10^3/uL (4.3-11.0)
--- NOTE | 2021-04-14 08:35 | Progress Note ---
[facility] 04/14/21 0835: Subjective Date Seen by a Provider: Apr 14, 2021 Time Seen by a Provider: 08:30 Subjective/Events-last exam 24 hr Events POD 1 S/P Low Transverse does not speak Salvadorean. was at bedside and translated Patient reports having abdominal pain. Appears consistent with incisional pain. Pain is controlled with pain medications and gets better with eating Has been trying to ambulate. States urine is less red tinged Hgb at 7.3 from 5.9, S/P two blood transfusions reports that patient's color has improved Review of Systems General: No Chills, No Other (fevers) Pulmonary: No Dyspnea, No Cough Gastrointestinal: Abdominal Pain; No: Nausea, Vomiting Objective Exam Last Set of Vital Signs Vital Signs Date Time Temp Pulse Resp B/P (MAP) Pulse Ox O2 Delivery O2 Flow Rate FiO2 04/14/21 03:45 36.6 81 18 97/54 (68) 04/13/21 20:50 Room Air 04/13/21 18:45 100 04/13/21 04:50 2 Capillary Refill : Less Than 3 SecondsLess Than 3 Seconds I&O l Intake and Output 04/14/21 00:00 Intake Total 4440 ml Output Total 1325 ml Balance 3115 ml Intake Oral 1740 ml IV Total 2550 ml Other 150 ml Output Urine Total 1325 ml General: Alert, Oriented X3, Cooperative, No Acute Distress HEENT: PERRLA Lungs: Clear to Auscultation, Normal Air Movement Heart: Regular Rate, Normal S1, Normal S2 Abdomen: Soft, Other (tenderness in the epigastric region and around the incision) Skin: Other (Low transverse abdominal incision with dressings. No drainage through the dressing) Psych/Mental Status: Mental Status NL Results Lab Laboratory Tests 04/13/21 13:30: Hemoglobin 5.9#*L, Hematocrit 19*L 04/14/21 05:45: Hemoglobin 7.3#L, Hematocrit 23L, White Blood Count 7.6, Red Blood Count 2.90L, Mean Corpuscular Volume 78L, Mean Corpuscular Hemoglobin 25, Mean Corpuscular Hemoglobin Concent 32, Red Cell Distribution Width 14.3, Platelet Count 118L, Mean Platelet Volume 9.5, Immature Granulocyte % (Auto) 1, Neutrophils (%) (Auto) 73, Lymphocytes (%) (Auto) 18, Monocytes (%) (Auto) 7, Eosinophils (%) (Auto) 1, Basophils (%) (Auto) 1, Neutrophils # (Auto) 5.5, Lymphocytes # (Auto) 1.3, Monocytes # (Auto) 0.5, Eosinophils # (Auto) 0.0, Basophils # (Auto) 0.0, Immature Granulocyte # (Auto) 0.1 Assessment/Plan Assessment/Plan Assess & Plan/Chief Complaint Low Transverse Continue out of bed activity as tolerated Pain controlled, continue pain regimen Anemia Continue to monitor H&H S/P 2 blood transfusions Current Hgb 7.3 (04/14/2021) Monitor I&Os Vaginal bleeding (resolving) BAILEY VÁZQUEZ DO 04/14/21 0934: Subjective Subjective/Events-last exam Infant was transferred to [place]. Mother would like to be discharged to be with baby. She has had transfusion for HGB 5.9 and symptomatic ( dizzy, low BP, tachycardia). HGB is 7.3 s/p 2 units PRBCs. Per RN, has ambulated minimally, but is able to ambulate. Reports Pain 8/10. Objective Exam Abdomen: Other (tenderness in the epigastric region and around the incision Bandage is intact, no bleeding. Will shower and take off then ) Skin: Other (Low transverse abdominal incision with dressings. No drainage through the dressing) Assessment/Plan Assessment/Plan Assess & Plan/Chief Complaint POD 1 s/p emergency LTCS due to placental abruption. 36 week gestation Antepartum and acute blood loss anemia/hemorrhage s/p 2 units PRBCs Plan possible DC today with instructions/abd binder/ iron/ pain meds. After exam, patient is not ready to be DC. Some pain relief with oral meds, but still requiring IV dilaudid for breakthrough. Will plan DC tomorrow. Supervisory-Addendum Brief Verification & Attestation Participated in pt care: history Personally performed: supervision of care Care discussed with: Medical Student Procedures: n/a I have seen and examined patient with student and agree with assessment and Plan AYLEEN MACDONALD Apr 14, 2021 08:35 BAILEY VÁZQUEZ DO Apr 14, 2021 09:34
[2021-04-14 09:45] VITALS: BP 112/58
[2021-04-14] MEDS: SIMETHICONE 80 MG (MYLICON) CHEW PO PRN ×2 (16:15→19:23)
--- NOTE | 2021-04-14 17:41 | Anesthesia-General Post-Op ---
General Patient Condition Mental Status/LOC: Same as Preop Cardiovascular: Satisfactory Nausea/Vomiting: Absent Respiratory: Satisfactory Pain: Controlled Complications: Absent Post Op Complications Complications None Follow Up Care/Instructions Patient Instructions None needed. Anesthesia/Patient Condition Patient Condition Patient is doing well, no complaints, stable vital signs, no apparent adverse anesthesia problems. No complications reported per nursing. МАРИЯ GRIFFIN CRNA Apr 14, 2021 17:41
[2021-04-14 18:05] VITALS: BP 104/58
[2021-04-14 21:02] VITALS: BP 101/63
[2021-04-15] MEDS: IBUPROFEN 600 MG (MOTRIN) TAB PO SCH ×2 (05:57→12:27)
[2021-04-15 05:59] VITALS: BP 109/56
[2021-04-15] MEDS: HYDROcodone/APAP 5 MG/325 MG (LORTAB) TAB PO PRN ×2 (06:53→12:27)
[2021-04-15] MEDS: SIMETHICONE 80 MG (MYLICON) CHEW PO PRN (06:53)
--- NOTE | 2021-04-15 08:26 | Progress Note ---
[facility] 04/15/21 0826: Subjective Date Seen by a Provider: Apr 15, 2021 Time Seen by a Provider: 08:21 Subjective/Events-last exam POD2 S/P LTCS Patient reports feeling better compared to yesterday. Pain is much improved with the use of the abdominal binder and pain medications Able to ambulate much easier. Reports having bowel movements Parents received a phone call last night about the baby, and would like to be discharged today Review of Systems General: No Chills, No Other (fevers) Gastrointestinal: No: Nausea, Vomiting Objective Exam Last Set of Vital Signs Vital Signs Date Time Temp Pulse Resp B/P (MAP) Pulse Ox O2 Delivery O2 Flow Rate FiO2 04/15/21 05:59 36.7 72 109/56 (73) 04/14/21 21:02 18 Room Air 04/14/21 18:05 99 04/13/21 04:50 2 Capillary Refill : Less Than 3 SecondsLess Than 3 Seconds I&O Intake and Output 04/15/21 00:00 Output Total 700 ml Balance -700 ml Output Urine Total 700 ml General: Alert, Oriented X3, Other (Appears much improved compared to yesterday) HEENT: Atraumatic, PERRLA Lungs: Clear to Auscultation, Normal Air Movement Heart: Regular Rate, Normal S1, Normal S2 Abdomen: Soft, Other (minimal tenderness to palpation around the incision. ABdominal binder in place) Psych/Mental Status: Mental Status NL, Mood NL Assessment/Plan Assessment/Plan Assess & Plan/Chief Complaint Low Transverse Continue out of bed activity as tolerated Pain controlled, continue pain regimen Continue Abdominal Binder Anemia Continue Iron pills as indicated Will plan to discharge today. Pain is controlled, and patient is tolerating diet BAILEY VÁZQUEZ DO 04/15/21921: Subjective Subjective/Events-last exam Improved Assessment/Plan Assessment/Plan Assess & Plan/Chief Complaint Plan DC today Supervisory-Addendum Brief Verification & Attestation Participated in pt care: history, physical Personally performed: supervision of care Care discussed with: Medical Student Procedures: n/a I have seen and examined the patient with the student and agree with assessment and plan AYLEEN [facility]DONALD [facility] Apr 15, 2021 08:26 BAILEY VÁZQUEZ DO Apr 15, 2021 09:22
[2021-04-15] MEDS ORDERED: SMT80CT PO (09:07)
[2021-04-15 10:45] VITALS: BP 110/59
[2021-04-15] MEDS: DOCUSATE SODIUM 100 MG (COLACE) CAP PO SCH (12:27)
== END 2021-04-15 13:20 | disposition home or self-care (01) | DRG 787 ==
LOC: LDRP 02:23 → WSo 02:23 → LDRP 02:36
PROVIDERS: ADMIT Family Medicine; ATTEND Family Medicine
PROC: 10D00Z1 Extraction of Products of Conception, Low, Open Approach (ICD-10-PCS; principal; 2021-04-13 03:31)
DX: O45.93 Premature separation of placenta, unspecified, third trimester (principal); D62 Acute posthemorrhagic anemia; Z3A.36 36 weeks gestation of pregnancy; Z37.0 Single live birth; O90.81 Anemia of the puerperium; O77.9 Labor and delivery complicated by fetal stress, unspecified
CPT/HCPCS: 36415; 74018; 85014; 85018; 85025; 86850; 86900; 86901; 86920; 94664; 99212